=== PATIENT | male | born 2000 | race Caucasian/White ===

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

== ENCOUNTER → 2025-03-11 | Outpatient (CLI) | payer BC ==
[~2025-03-11] MED LIST changes: +ALLERGY SHOTS; +CLARITIN10 MG PO; +FLONASE ALLERG9.9 ML NAS; +ROBITUSSIN AC 110 ML PO
[2025-03-11 09:11] LABS: MEAN CELL VOLUME 87.0 fl (80.0-94.0); MEAN CORPUSCULAR HGB 28.5 pg (27.0-31.0); MEAN PLATELET VOLUME 9.9 fl (9.6-12.3); NUCLEATED RED BLOOD CELL 0.0 % (0.0-0.0); NUCLEATED RED BLOOD CELL 0.0 10*3/uL (0.0-0.0); PLATELET COUNT AUTOMATED 322.0 10*3/uL (130-400); RED CELL DISTRI WIDTH 11.9 % (0-14.5)
[2025-03-11 09:34] LABS: BUN 12 mg/dl (9-23); LDL CHOLESTEROL 64 mg/dL (9-159); SGPT/ALT 12 U/L (5-49)
== END | disposition home or self-care (01) ==
LOC: LAB 08:42
PROVIDERS: ATTEND Family Medicine
DX: R07.9 Chest pain, unspecified (principal); E78.00 Pure hypercholesterolemia, unspecified